=== PATIENT | male | born 1970 | race Caucasian/White ===

== ENCOUNTER 2023-12-21 12:22 | Inpatient (IN) | payer OTHER ==
[~2023-12-21] VITALS: Ht 165.1 cm; Wt 59.0 kg
[2023-12-21] MEDS ORDERED: INSU100I24 SQ (12:38)
[2023-12-21] MEDS ORDERED: CARV12.52 PO (12:38)
[2023-12-21] MEDS ORDERED: GLIM4TAB37 PO (12:38)
[2023-12-21] MEDS ORDERED: MELA5TAB21 PO (12:38)
[2023-12-21] MEDS ORDERED: INSU100V7 SQ (12:38)
--- NOTE | 2023-12-21 12:39 | NUR ---
THE MED LIST PROVIDED BY THE [facility]EL[facility] FROM [facility].
[2023-12-21] MEDS ORDERED: MAGNESIUM SULFATE/D5W 200 ML ONE (12:57)
[2023-12-21] MEDS ORDERED: METOPROLOL TARTRATE 50 MG TABLET ONE (12:58)
[2023-12-21] MEDS ORDERED: METOPROLOL TARTRATE 5 MG/5 ML VIAL IVP ONE (12:58)
[2023-12-21] MEDS ORDERED: NITROGLYCERIN OINT 1 GM PACKET TP ONE (12:59)
[2023-12-21 13:09] LABS: BASOPHILS % (AUTO) 0.4 % (0.0-2.0); EOSINOPHILS # (AUTO) 0.6 K/uL (0.0-0.7); EOSINOPHILS % (AUTO) 5.6 % (0.0-7.0); HEMATOCRIT 36.5 % (36.7-47.1); HEMOGLOBIN 12.2 g/dL (12.5-16.3); LYMPHOCYTES # (AUTO) 2.1 K/uL (0.8-4.8); LYMPHOCYTES % (AUTO) 20.6 % (20.5-51.5); MEAN CORPUSCULAR HEMOGLOBIN 28.8 uug (23.8-33.4); MEAN CORPUSCULAR HGB CONC 33 g/dL (32.5-36.3); MEAN CORPUSCULAR VOLUME 86.1 fL (73.0-96.2); MONOCYTES # (AUTO) 1.3 K/uL (0.1-1.30); MONOCYTES % (AUTO) 12.7 % (0.0-11.0); NEUTROPHILS # (AUTO) 6.1 K/uL (1.8-8.9); NEUTROPHILS % (AUTO) 60.7 % (38.5-71.5); PLATELET COUNT (AUTO) 178 K/uL (152-348); RED BLOOD CELL COUNT(AUTO) 4.24 MIL/uL (4.06-5.63); RED CELL DISTRIBUTION WIDTH 14.2 % (12.1-16.2); WHITE BLOOD COUNT (AUTO) 10.1 K/uL (3.6-10.2)
[2023-12-21 13:10] LABS: DIFFERENTIAL COMMENT 1
[2023-12-21] MEDS: MAGNESIUM SULFATE 2 GM in IV DEXTROSE 5% 100 ML IV ONE (13:14)
[2023-12-21] MEDS: ASPIRIN 81 MG TAB.CHEW PO ONE (13:15)
[2023-12-21] MEDS: METOPROLOL TARTRATE 5 MG/5 ML VIAL IVP ONE (13:15)
[2023-12-21] MEDS: METOPROLOL TARTRATE 50 MG TABLET PO ONE (13:15)
[2023-12-21] MEDS: NITROGLYCERIN OINT 1 GM PACKET TP ONE (13:16)
[2023-12-21] MEDS ORDERED: ASPIRIN 81 MG TAB.CHEW ONE (13:17)
[2023-12-21 13:18] LABS: CALCIUM 8.4 mg/dL (8.5-10.1); CARBON DIOXIDE 28 mmol/L (21-32); CHLORIDE 100 mmol/L (98-107); CREATININE 0.6 mg/dL (0.6-1.3); GLUCOSE 213 mg/dL (74-106); POTASSIUM 3.9 mmol/L (3.5-5.1); SODIUM SERUM 135 mmol/L (136-145); UREA NITROGEN, BLOOD 18 mg/dL (7-18)
--- NOTE | 2023-12-21 13:27 | NUR ---
PT IS IN ROOM #1B. DR RODRIGUEZ EVALUATED THE PT.
[2023-12-21] MEDS ORDERED: ACETAMINOPHEN 325 MG TABLET PO PRN (13:30)
[2023-12-21 13:31] LABS: ALANINE AMINOTRANSFERASE 52 U/L (16-63); ALKALINE PHOSPHATASE 106 U/L (50-136); ASPARTATE AMINOTRANSFERASE 26 U/L (15-37); BILIRUBIN,TOTAL 0.3 mg/dL (0.2-1.0); NT-PRO BNP 394 pg/mL (0-125); TOTAL PROTEIN, SERUM 6.1 g/dL (6.4-8.2)
[2023-12-21 14:07] LABS: BILIRUBIN,DIRECT < 0.1 mg/dL (0.0-0.2)
[2023-12-21] MEDS ORDERED: NITR0.4T48 SL (14:30)
[2023-12-21] MEDS ORDERED: METO25TA6 PO (14:30)
--- NOTE | 2023-12-21 15:31 | NUR ---
MIDDLE LINE RN WAS CALLED BY NURSING EXCAVATION LABORER TO INSERT MIDDLE LINE IV.
--- NOTE | 2023-12-21 15:47 | NUR ---
1547 PT ARRIVED TO THE UNIT. A/OX4 ON RA NO SOB OR DISTRESS NOTED, NO COMPLAIN OF CHEST PAIN. NO IV ASSES, WAITING FOR THE MIDLINE NURSE. SKIN IS INTACT. SAFETY MEASURES IN PLACE, CALL LIGHT IN REACH.
--- NOTE | 2023-12-21 15:47 | NUR ---
REPORT WAS GIVEN TO RETAIL MANAGEMENT KEYHOLDER. PT WAS TRANSFERED TO TELEMETRY ROOM #320.
[2023-12-21] MEDS: NICOTINE 21 MG/24HR PATCH TD SCH (17:49)
--- NOTE | 2023-12-21 17:59 | NUR ---
@1730 pt pushed away the table and moved to the chair and said "I wanna go out for cigarette, I don't care where I am, I need to smoke, I'm dying". Per pt, the security magno got his cigarette when he came and told him when you admitted, you can come down and smoke. RN talked to him, he did not convinced. Charge nurse talked to him and asked doctor for Nicotine patch, and administered per doctor order. Charge nurse gave him juice and ice since he was hot. Now pt is calm for now.
--- NOTE | 2023-12-21 18:13 | NUR ---
PT GOT AGITATED, INSISTING TO GO DOWNSTAIRS TO SMOKE, REFUSING NICOTINE PATCH. EXPLAINED TO THE PT ALL RISKS, HE STILL INSISTING. PT SEEN BY THE CHARGE NURSE AND NURSING EXCHANGE SPECIALIST. NICOTINE PATCH WAS ADMINISTERED
--- NOTE | 2023-12-21 18:20 | NUR ---
URINE COLLECTED AND SENT TO THE LAB
[2023-12-21 18:39] LABS: *BILIRUBIN,URIN NEGATIVE (NEGATIVE); *CLARITY,URINE CLEAR (CLEAR); *COLOR,URINE YELLOW (YELLOW); *KETONES,URINE NEGATIVE (NEGATIVE); *PROTEIN,URINE 3+ (NEGATIVE); *UROBILINOGEN,URINE 0.2 E.U./dl (NORMAL); LEUKOCYTE ESTERASE ,URINE NEGATIVE (NEGATIVE); NITRITE, URINE NEGATIVE (NEGATIVE); PH,URINE 5.5 (5.0-8.0); UGLUCOSE 1+ (NEGATIVE)
[2023-12-21 18:53] LABS: *BLOOD, URINE TRACE (NEGATIVE)
[2023-12-21 18:57] LABS: *AMPHETAMINE, URINE NEGATIVE (NEGATIVE); *BARBITURATE, URINE NEGATIVE (NEGATIVE); *BENZODIAZEPINE, URINE NEGATIVE (NEGATIVE); *CANNABINOID, URINE NEGATIVE (NEGATIVE); *COCCAINE, URINE NEGATIVE (NEGATIVE); *OPIATE, URINE NEGATIVE (NEGATIVE); *PHENCYCLIDINE SCREEN,URINE NEGATIVE (NEGATIVE); FENTANYL, URINE NEGATIVE (NEGATIVE)
[2023-12-21 19:12] LABS: BACTERIA,URINE NONE SEEN /HPF (NONE SEEN); RBC,URINE 0-3 /HPF (0-3); SQUAMOUS EPITHELIAL CELL,UR FEW /HPF (NONE SEEN); WBC,URINE 0-3 /HPF (0-3)
--- NOTE | 2023-12-21 19:40 | NUR ---
Received patient in bed awake, AAO x4, no noted signs of distress. SR on tele with HR of 85, denies chest pain at the moment.
[2023-12-21 19:59] VITALS: BP 135/70; TEMP 98.4; O2SAT 96
[2023-12-21] MEDS ORDERED: MELATONIN 3 MG TABLET PO SCH (21:00)
[2023-12-21] MEDS ORDERED: NITROGLYCERIN 0.4 MG/TAB BOTTLE SL SCH (21:00)
[2023-12-21] MEDS: METOPROLOL TARTRATE 25 MG TABLET PO SCH (21:18)
[2023-12-21] MEDS: CARVEDILOL 12.5 MG TABLET PO SCH (21:18)
[2023-12-21] MEDS: MELATONIN 3 MG TABLET PO SCH (21:40)
[2023-12-22 00:10] VITALS: BP 128/67; TEMP 98.2; O2SAT 96
[2023-12-22 04:00] VITALS: BP 134/72; TEMP 98.2; O2SAT 98
[2023-12-22 06:28] LABS: BASOPHILS % (AUTO) 0.5 % (0.0-2.0); EOSINOPHILS # (AUTO) 0.5 K/uL (0.0-0.7); EOSINOPHILS % (AUTO) 5.7 % (0.0-7.0); HEMATOCRIT 38.2 % (36.7-47.1); HEMOGLOBIN 12.7 g/dL (12.5-16.3); LYMPHOCYTES % (AUTO) 21.5 % (20.5-51.5); MEAN CORPUSCULAR HEMOGLOBIN 28.6 uug (23.8-33.4); MEAN CORPUSCULAR HGB CONC 33 g/dL (32.5-36.3); MONOCYTES # (AUTO) 1.2 K/uL (0.1-1.30); MONOCYTES % (AUTO) 13.1 % (0.0-11.0); NEUTROPHILS # (AUTO) 5.4 K/uL (1.8-8.9); NEUTROPHILS % (AUTO) 59.2 % (38.5-71.5); PLATELET COUNT (AUTO) 190 K/uL (152-348); RED BLOOD CELL COUNT(AUTO) 4.44 MIL/uL (4.06-5.63); RED CELL DISTRIBUTION WIDTH 14.2 % (12.1-16.2); WHITE BLOOD COUNT (AUTO) 9.1 K/uL (3.6-10.2)
[2023-12-22 06:38] LABS: DIFFERENTIAL COMMENT 1
[2023-12-22 06:42] LABS: CALCIUM 8.2 mg/dL (8.5-10.1); CREATININE 0.7 mg/dL (0.6-1.3); MAGNESIUM 1.7 mg/dL (1.8-2.4); PHOSPHOROUS 3.2 mg/dL (2.5-4.9); POTASSIUM 4.4 mmol/L (3.5-5.1)
--- NOTE | 2023-12-22 06:42 | NUR ---
Slept at long intervals, no signs of distress, denies chest pain. SR on monitor with HR of 80.
[2023-12-22 07:44] VITALS: BP 137/67; TEMP 98.4; O2SAT 95
[2023-12-22] MEDS: GLIMEPIRIDE 4 MG TABLET PO SCH ×2 (09:44→17:53)
[2023-12-22] MEDS: INSULIN GLARGINE,HUM 300 UNITS/3 ML CARTRIDGE SQ SCH (09:49)
--- NOTE | 2023-12-22 10:26 | NUR ---
Patient anxious to discharge today back to rehab. Assist to call his spouse in [place]. Request to have discharge now if possible. Noted unable to discharge now unless he would sign against medical advice. He verbalizes this is a bad idea if he will already be discharged soon.
[2023-12-22] MEDS ORDERED: METH-807 PO (10:52)
[2023-12-22] MEDS ORDERED: BUPR1FIL SL (10:52)
[2023-12-22] MEDS ORDERED: ONDA4TAB11 PO (10:52)
[2023-12-22] MEDS ORDERED: GABA600T12 PO (10:52)
[2023-12-22] MEDS ORDERED: HYDR50CA5 PO (10:52)
[2023-12-22] MEDS ORDERED: CLON0.1T PO (10:52)
--- NOTE | 2023-12-22 11:10 | NUR ---
Terrance Welch from patient rehab says the rehab provider is not in agreement with insurance discharge plan to [place] at this time and wants patient to return to treatment if medically stable with his heart . The case is being seen on a single case basis emergency treatment status not covered under insurance as he is [place] state.
[2023-12-22 11:32] VITALS: BP 135/70; TEMP 98; O2SAT 97
[2023-12-22] MEDS: MAGNESIUM OXIDE 400 MG TABLET PO ONE (11:32)
[2023-12-22] MEDS ORDERED: AMLO10TA59 PO (12:46)
[2023-12-22] MEDS ORDERED: SITA100T PO (12:46)
[2023-12-22] MEDS ORDERED: PANT40TA49 PO (12:46)
--- NOTE | 2023-12-22 12:54 | NUR ---
Per request of [facility] health information release signed at this time.
--- NOTE | 2023-12-22 13:18 | NUR ---
dr downing is aware about documentation required to continue in rehab, per sharon from [facility] number [phone]
[2023-12-22 16:00] VITALS: BP 131/55; TEMP 98.3; O2SAT 99
[2023-12-22 17:53] VITALS: BP 131/55
--- NOTE | 2023-12-22 18:27 | NUR ---
patient wanted to leave immediately and went outside to smoke, brought back safely, assurance auditor kept by security, explained to patient that rehab detox center require discharge summary from doctor, which is pending, wait until discharge summary, will decide if detox center will pick you up. patient came up to floor and is in his room.
--- NOTE | 2023-12-22 19:02 | NUR ---
patient discharged safely to his detox center, [facility] was sent by detox center [facility].
[2023-12-22] MEDS ORDERED: MELATONIN 3 MG TABLET PO SCH (21:00)
[2023-12-23] MEDS ORDERED: PANTOPRAZOLE SODIUM 40 MG TABLET.DR PO SCH (07:00)
[2023-12-23] MEDS ORDERED: AMLODIPINE 10 MG TABLET PO SCH (09:00)
== END 2023-12-22 19:02 | disposition other institution (70) | DRG 206 ==
LOC: ER 12:22 → TELE3 15:44 → MEDSURG3 12-22 14:40
PROVIDERS: ADMIT Nurse Practitioner Acute Care; ATTEND Internal Medicine
DX: M94.0 Chondrocostal junction syndrome [Tietze] (principal); J20.8 Acute bronchitis due to other specified organisms; I10 Essential (primary) hypertension; E78.5 Hyperlipidemia, unspecified; E10.65 Type 1 diabetes mellitus with hyperglycemia; F17.210 Nicotine dependence, cigarettes, uncomplicated; Z88.0 Allergy status to penicillin; Z79.4 Long term (current) use of insulin; F19.11 Other psychoactive substance abuse, in remission; R60.0 Localized edema; R94.31 Abnormal electrocardiogram [ECG] [EKG]; I20.9 Angina pectoris, unspecified
CPT/HCPCS: 36415; 71045; 83735; 84100; 84484; 85025; 85730; 93005; 93307; A4606; A4663; G0378; J1815; J3475; J3490